=== PATIENT | female | born 1990 | race Hispanic/Latino ===

== ENCOUNTER → 2020-06-28 | Outpatient (CLI) | payer BC | END | disposition home or self-care (01) | LOC: SHCH 08:13 | PROVIDERS: ATTEND Internal Medicine Cardiovascular Disease | DX: I87.2 Venous insufficiency (chronic) (peripheral) (principal); R07.9 Chest pain, unspecified; R06.00 Dyspnea, unspecified | CPT/HCPCS: 93306; 93356 ==